=== PATIENT | female | born 1985 | race Caucasian/White ===

== ENCOUNTER 2017-08-11 19:19 | Inpatient (IN) | payer OTHER ==
[2017-08-11] MEDS: SOD CHLORIDE 0.9% 1,000 ML IV (22:21)
[2017-08-11] MEDS: ONDANSETRON 4 MG INJ IV (22:21)
[2017-08-11] MEDS: morphine 4 MG/ML VIAL IV (22:22)
[2017-08-11 22:30] LABS: ADD MAN DIFF? NO
[2017-08-11 22:32] LABS: BASOPHILS % 0.3 % (0.0-2.0); EOSINOPHILS # 0.1 10^3/ul (0.0-0.5); EOSINOPHILS % 0.9 % (0.0-7.0); HEMATOCRIT 31.9 % (37.0-47.0); HEMOGLOBIN 10.4 g/dl (12.0-16.0); LYMPHOCYTES # 1.8 10^3/ul (0.8-2.9); LYMPHOCYTES % 14.1 % (15.0-51.0); MEAN CORPUSCULAR HEMOGLOBIN 27.4 pg (29.0-33.0); MEAN CORPUSCULAR HGB CONC 32.6 g/dl (32.0-37.0); MEAN CORPUSCULAR VOLUME 84.2 fl (82.0-101.0); MEAN PLATELET VOLUME 9.4 fl (7.4-10.4); MONOCYTE # 1.1 10^3/ul (0.3-0.9); MONOCYTES % 8.3 % (0.0-11.0); NEUTROPHIL # 9.9 10^3/ul (1.6-7.5); NEUTROPHILS % 75.9 % (39.0-77.0); PLATELET COUNT 392 10^3/UL (140-415); RED BLOOD COUNT 3.79 10^6/ul (4.20-5.40); RED CELL DISTRIBUTION WIDTH 13.2 % (11.5-14.5)
[2017-08-11 22:36] LABS: ADD UMIC NO; UR ASCORBIC ACID NEGATIVE (NEGATIVE); UR BILIRUBIN (Dip) NEGATIVE (NEGATIVE); UR BLOOD (Dip) NEGATIVE (NEGATIVE); UR CLARITY CLEAR (CLEAR); UR COLOR YELLOW (YELLOW); UR GLUCOSE (Dip) NEGATIVE (NEGATIVE); UR KETONES (Dip) NEGATIVE (NEGATIVE); UR LEUKOCYTE ESTERASE (Dip) NEGATIVE Leu/ul (NEGATIVE); UR NITRITE (Dip) NEGATIVE (NEGATIVE); UR SPECIFIC GRAVITY (Dip) 1.014 (1.003-1.030); UR TOTAL PROTEIN (Dip) NEGATIVE (NEGATIVE); UR UROBILINOGEN (Dip) NEGATIVE (NEGATIVE)
[2017-08-11 22:49] LABS: ALANINE AMINOTRANSFERASE 25 IU/L (13-69); ALBUMIN 4.7 g/dl (3.3-4.9); ALBUMIN/GLOBULIN RATIO 1.56; ALKALINE PHOSPHATASE 94 IU/L (42-121); ANION GAP 17 (8-16); ASPARTATE AMINO TRANSFERASE 23 IU/L (15-46); BILIRUBIN,INDIRECT 0.2 mg/dl (0-1.1); BILIRUBIN,TOTAL 0.2 mg/dl (0.2-1.3); BLOOD UREA NITROGEN 11 mg/dl (7-20); CALCIUM 9.4 mg/dl (8.4-10.2); CARBON DIOXIDE 24 mmol/L (21-31); CHLORIDE 104 mmol/L (97-110); CREATININE 0.65 mg/dl (0.44-1.00); GLUCOSE 115 mg/dl (70-220); LIPASE 107 U/L (23-300); POTASSIUM 3.9 mmol/L (3.5-5.1); SODIUM 141 mmol/L (135-144); TOTAL PROTEIN 7.7 g/dl (6.1-8.1)
[2017-08-11] MEDS: HYDROmorphONE 1 MG/ML SYG IV (23:58)
[2017-08-12 00:57] LABS: INR 0.93; PROTIME 12.6 Sec (11.9-14.9)
[2017-08-12 00:58] LABS: PARTIAL THROMBOPLASTIN TIME 30.3 Sec (25.0-35.0)
[2017-08-12] MEDS: SODIUM CHLORIDE 0.9% 1L BAG IV* (01:15)
[2017-08-12 01:34] LABS: TROPONIN-I < 0.012 ng/ml (0.00-0.12)
[2017-08-12] MEDS: CEFTRIAXONE 1 GM/50 ML (PMX) 50 ML IVPB (02:26)
[2017-08-12] MEDS: KETOROLAC 30 MG INJ IV (02:26)
[2017-08-12] MEDS: AZITHROMYCIN 500MG/NS (PMX) 250 ML IVPB (02:55)
[2017-08-12] MEDS: morphine 2 MG INJ IV ×3 (03:57→19:30)
[2017-08-12] MEDS ORDERED: ALBUTEROL/IPRATROPIUM (NEB) 3 ML AMP HHN (04:00)
[2017-08-12] MEDS ORDERED: NACL 0.9% 3 ML SYG IV (04:00)
[2017-08-12 06:05] LABS: ADD MAN DIFF? NO
[2017-08-12] MEDS: LEVOFLOXACIN 500MG/D5W (PMX) 100 ML IVPB (06:19)
[2017-08-12 06:32] LABS: WHITE BLOOD COUNT 10.7 10^3/ul (4.8-10.8)
[2017-08-12 06:32] LABS: BASOPHILS % 0.3 % (0.0-2.0); EOSINOPHILS # 0.1 10^3/ul (0.0-0.5); EOSINOPHILS % 0.8 % (0.0-7.0); HEMOGLOBIN 7.7 g/dl (12.0-16.0); LYMPHOCYTES # 1.9 10^3/ul (0.8-2.9); LYMPHOCYTES % 17.7 % (15.0-51.0); MEAN CORPUSCULAR HEMOGLOBIN 27.1 pg (29.0-33.0); MEAN CORPUSCULAR HGB CONC 32.1 g/dl (32.0-37.0); MEAN CORPUSCULAR VOLUME 84.5 fl (82.0-101.0); MEAN PLATELET VOLUME 9.5 fl (7.4-10.4); MONOCYTE # 0.8 10^3/ul (0.3-0.9); NEUTROPHIL # 7.9 10^3/ul (1.6-7.5); NEUTROPHILS % 74.1 % (39.0-77.0); PLATELET COUNT 275 10^3/UL (140-415); RED BLOOD COUNT 2.84 10^6/ul (4.20-5.40); RED CELL DISTRIBUTION WIDTH 13.3 % (11.5-14.5)
[2017-08-12 06:45] LABS: LACTIC ACID 0.8 mmol/L (0.5-2.0)
[2017-08-12 06:52] LABS: ALANINE AMINOTRANSFERASE 24 IU/L (13-69); ALBUMIN 2.7 g/dl (3.3-4.9); ALBUMIN/GLOBULIN RATIO 1.03; ALKALINE PHOSPHATASE 57 IU/L (42-121); ANION GAP 9 (8-16); ASPARTATE AMINO TRANSFERASE 15 IU/L (15-46); BILIRUBIN,INDIRECT 0.2 mg/dl (0-1.1); BILIRUBIN,TOTAL 0.2 mg/dl (0.2-1.3); BLOOD UREA NITROGEN 6 mg/dl (7-20); CALCIUM 7.5 mg/dl (8.4-10.2); CARBON DIOXIDE 21 mmol/L (21-31); CHLORIDE 115 mmol/L (97-110); CREATININE 0.55 mg/dl (0.44-1.00); GLUCOSE 101 mg/dl (70-220); MAGNESIUM 1.5 mg/dl (1.7-2.5); PHOSPHORUS 3.1 mg/dl (2.5-4.9); POTASSIUM 3.7 mmol/L (3.5-5.1); SODIUM 141 mmol/L (135-144); TOTAL PROTEIN 5.3 g/dl (6.1-8.1)
[2017-08-12 07:25] LABS: HEMOGLOBIN A1C 5.5 % (0-5.9)
[2017-08-12] MEDS: ONDANSETRON 4 MG INJ IV ×2 (08:08→19:29)
[2017-08-12 08:11] LABS: LACTIC ACID 0.6 mmol/L (0.5-2.0)
[2017-08-12] MEDS: ENOXAPARIN 40 MG/0.4 ML SYG SC (09:46)
[2017-08-12] MEDS: MAGNESIUM SULFATE 2 GM/50 ML 50 ML IVPB (17:17)
[2017-08-12] MEDS: SOD CHLORIDE 0.9% 1,000 ML IV ×3 (17:18→23:42)
[2017-08-13] MEDS: SOD CHLORIDE 0.9% 1,000 ML IV ×2 (03:49→12:49)
[2017-08-13] MEDS: LEVOFLOXACIN 500MG/D5W (PMX) 100 ML IVPB (05:37)
[2017-08-13 06:52] LABS: ADD MAN DIFF? NO
[2017-08-13 06:55] LABS: BASOPHILS % 0.4 % (0.0-2.0); EOSINOPHILS # 0.2 10^3/ul (0.0-0.5); EOSINOPHILS % 3.1 % (0.0-7.0); HEMATOCRIT 26.1 % (37.0-47.0); HEMOGLOBIN 8.4 g/dl (12.0-16.0); LYMPHOCYTES # 1.8 10^3/ul (0.8-2.9); MEAN CORPUSCULAR HEMOGLOBIN 27.4 pg (29.0-33.0); MEAN CORPUSCULAR HGB CONC 32.2 g/dl (32.0-37.0); MEAN PLATELET VOLUME 9.5 fl (7.4-10.4); MONOCYTE # 0.4 10^3/ul (0.3-0.9); MONOCYTES % 8.6 % (0.0-11.0); NEUTROPHIL # 2.5 10^3/ul (1.6-7.5); NEUTROPHILS % 50.5 % (39.0-77.0); PLATELET COUNT 297 10^3/UL (140-415); RED BLOOD COUNT 3.07 10^6/ul (4.20-5.40); RED CELL DISTRIBUTION WIDTH 13.5 % (11.5-14.5)
[2017-08-13 06:55] LABS: WHITE BLOOD COUNT 4.9 10^3/ul (4.8-10.8)
[2017-08-13 07:17] LABS: ALANINE AMINOTRANSFERASE 35 IU/L (13-69); ALBUMIN 3.1 g/dl (3.3-4.9); ALBUMIN/GLOBULIN RATIO 1.19; ALKALINE PHOSPHATASE 63 IU/L (42-121); ANION GAP 16 (8-16); ASPARTATE AMINO TRANSFERASE 20 IU/L (15-46); BLOOD UREA NITROGEN 12 mg/dl (7-20); CALCIUM 8.7 mg/dl (8.4-10.2); CARBON DIOXIDE 23 mmol/L (21-31); CHLORIDE 111 mmol/L (97-110); CREATININE 0.58 mg/dl (0.44-1.00); GLUCOSE 102 mg/dl (70-220); POTASSIUM 4.4 mmol/L (3.5-5.1); SODIUM 146 mmol/L (135-144); TOTAL PROTEIN 5.7 g/dl (6.1-8.1)
[2017-08-13 07:20] LABS: HDL CHOLESTEROL 65 mg/dl (34-82); TRIGLYCERIDES 55 mg/dl (0-149)
[2017-08-13 07:35] LABS: CHOL/HDL RATIO 2.2 RATIO; LDL CHOLESTEROL,CALCULATED 67 mg/dl
[2017-08-13 07:43] LABS: CHOLESTEROL 143 mg/dl (100-200)
[2017-08-13 08:04] LABS: MAGNESIUM 1.8 mg/dl (1.7-2.5)
[2017-08-13 08:04] LABS: PHOSPHORUS 3.8 mg/dl (2.5-4.9)
[2017-08-13] MEDS: ENOXAPARIN 40 MG/0.4 ML SYG SC (09:00)
[2017-08-13 14:47] LABS: IRON 21 ug/dl (35-150)
[2017-08-13 14:56] LABS: % IRON SATURATION 5 % SAT (22-52); TOTAL IRON BINDING CAPACITY 406 ug/dl (241-421)
[2017-08-13 15:21] LABS: FERRITIN 19.1 ng/ml (6.2-137.0)
[2017-08-13] MEDS ORDERED: PROPOFOL 20 ML (15:32)
[2017-08-13] MEDS ORDERED: ONDANSETRON 4 MG INJ (15:32)
[2017-08-13] MEDS ORDERED: ROCURONIUM 50 MG INJ ×2 (15:32→16:38)
[2017-08-13] MEDS ORDERED: ROPIVACAINE 0.5 % 30 ML VIAL (15:32)
[2017-08-13] MEDS ORDERED: METOCLOPRAMIDE 10 MG INJ (15:34)
[2017-08-13] MEDS ORDERED: MIDAZOLAM 1 MG/ML 2 ML INJ ×2 (15:35→17:30)
[2017-08-13] MEDS ORDERED: CEFAZOLIN 1 GM INJ (16:04)
[2017-08-13] MEDS: BUPIVACAINE 0.25%/EPI (SDV) 30 ML INJ INJ (16:25)
[2017-08-13] MEDS ORDERED: HYDROmorphONE 2 MG/ML SYG (16:36)
[2017-08-13] MEDS ORDERED: HYDROmorphONE 1 MG/ML SYG IV (17:30)
[2017-08-13] MEDS ORDERED: KETOROLAC 30 MG INJ IV (17:30)
[2017-08-13] MEDS ORDERED: BISACODYL 10 MG SUPP PR (17:30)
[2017-08-13] MEDS ORDERED: DOCUSATE SODIUM 100 MG CAP PO (17:30)
[2017-08-13] MEDS ORDERED: HYDROCODONE/APAP (5/325) TAB PO (17:30)
[2017-08-13] MEDS ORDERED: HYDROmorphONE (0.2 MG/ML) 10ML SYG IV ×3 (17:30)
[2017-08-13] MEDS ORDERED: HYDROmorphONE 0.5 MG/0.5 ML SYG IV (17:30)
[2017-08-13] MEDS ORDERED: NA PHOSPHATE/BIPHOS 133 ML ENEMA PR (17:30)
[2017-08-13] MEDS ORDERED: DIPHENHYDRAMINE 50 MG INJ IV ×2 (17:30→22:30)
[2017-08-13] MEDS ORDERED: ALBUTEROL 0.5% (NEB) 2.5 MG/0.5 ML AMP (17:40)
[2017-08-13] MEDS: MIDAZOLAM 1 MG/ML 2 ML INJ IV (17:55)
[2017-08-13] MEDS: ALBUTEROL 0.083% (NEB) 2.5 MG/3 ML AMP HHN (18:01)
[2017-08-13] MEDS: MEPERIDINE 25 MG INJ IV (18:17)
[2017-08-13] MEDS: ONDANSETRON 4 MG INJ IV ×2 (18:17→22:39)
[2017-08-13] MEDS: HYDROmorphONE 0.5 MG/0.5 ML SYG IV ×2 (20:22→22:22)
[2017-08-13] MEDS ORDERED: DIPHENHYDRAMINE 25 MG CAP PO (22:30)
[2017-08-14] MEDS: ACETAMINOPHEN 325 MG TAB PO (04:00)
[2017-08-14 05:25] LABS: ADD MAN DIFF? NO
[2017-08-14 05:31] LABS: BASOPHILS % 0.2 % (0.0-2.0); EOSINOPHILS # 0.1 10^3/ul (0.0-0.5); EOSINOPHILS % 0.6 % (0.0-7.0); HEMATOCRIT 26.3 % (37.0-47.0); HEMOGLOBIN 8.8 g/dl (12.0-16.0); LYMPHOCYTES # 1.4 10^3/ul (0.8-2.9); LYMPHOCYTES % 16.3 % (15.0-51.0); MEAN CORPUSCULAR HGB CONC 33.5 g/dl (32.0-37.0); MEAN CORPUSCULAR VOLUME 83.8 fl (82.0-101.0); MEAN PLATELET VOLUME 9.3 fl (7.4-10.4); MONOCYTE # 0.6 10^3/ul (0.3-0.9); MONOCYTES % 7.3 % (0.0-11.0); NEUTROPHIL # 6.4 10^3/ul (1.6-7.5); NEUTROPHILS % 75.1 % (39.0-77.0); PLATELET COUNT 347 10^3/UL (140-415); RED BLOOD COUNT 3.14 10^6/ul (4.20-5.40); RED CELL DISTRIBUTION WIDTH 13.4 % (11.5-14.5)
[2017-08-14 05:31] LABS: WHITE BLOOD COUNT 8.6 10^3/ul (4.8-10.8)
[2017-08-14 05:59] LABS: INR 1.03; PARTIAL THROMBOPLASTIN TIME 23.8 Sec (25.0-35.0); PROTIME 13.6 Sec (11.9-14.9); PT RATIO 1.1
[2017-08-14 06:02] LABS: MAGNESIUM 1.6 mg/dl (1.7-2.5)
[2017-08-14 06:14] LABS: B-TYPE NATRIURETIC PEPTIDE 778 PG/ML (0-125)
[2017-08-14 06:43] LABS: ALANINE AMINOTRANSFERASE 39 IU/L (13-69); ALBUMIN 3.9 g/dl (3.3-4.9); ALBUMIN/GLOBULIN RATIO 1.25; ALKALINE PHOSPHATASE 66 IU/L (42-121); ANION GAP 16 (8-16); ASPARTATE AMINO TRANSFERASE 52 IU/L (15-46); BILIRUBIN,INDIRECT 0.1 mg/dl (0-1.1); BILIRUBIN,TOTAL 0.1 mg/dl (0.2-1.3); BLOOD UREA NITROGEN 6 mg/dl (7-20); CALCIUM 9.3 mg/dl (8.4-10.2); CARBON DIOXIDE 28 mmol/L (21-31); CHLORIDE 105 mmol/L (97-110); CREATININE 0.65 mg/dl (0.44-1.00); GLUCOSE 113 mg/dl (70-220); POTASSIUM 4.1 mmol/L (3.5-5.1); SODIUM 145 mmol/L (135-144)
[2017-08-14] MEDS ORDERED: BUPIVACAINE 0.25%/EPI (MDV) 50 ML VIAL INJ (07:00)
[2017-08-14] MEDS: HYDROCODONE/APAP (5/325) TAB PO ×2 (08:11→15:28)
[2017-08-14] MEDS: FAMOTIDINE 20 MG INJ IV (08:11)
[2017-08-14] MEDS: INFLUENZA VIRUS VACCINE 0.5 ML SYG IM* (08:20)
[2017-08-14] MEDS: ENOXAPARIN 40 MG/0.4 ML SYG SC (08:20)
[2017-08-14] MEDS: MAGNESIUM SULFATE 2 GM/50 ML 50 ML IVPB (13:00)
== END 2017-08-14 17:20 | disposition home or self-care (01) | DRG 854 ==
LOC: FTE 19:19 → PP2 08-13 18:55 → MS3 08-12 03:12
PROC: 0FT44ZZ Resection of Gallbladder, Percutaneous Endoscopic Approach (ICD-10-PCS; principal; 2017-08-13 15:00)
DX: A41.9 Sepsis, unspecified organism (principal); K80.00 Calculus of gallbladder with acute cholecystitis without obstruction; N39.0 Urinary tract infection, site not specified; D64.9 Anemia, unspecified; E66.9 Obesity, unspecified; Z68.30 Body mass index [BMI] 30.0-30.9, adult; Z97.5 Presence of (intrauterine) contraceptive device
CPT/HCPCS: 36415; 71045; 74176; 76705; 76856; 80053; 80061; 81003; 82728; 83036; 83540; 83605; 83690; 83735; 83880; 84100; 84484; 84703; 85025; 85610; 85730; 87040; 87086; 87400; 88304; 93005; 94664; 96361; 96365; 96366; 96368; 96372; 96375; 96376; 99285-25

== ENCOUNTER 2017-08-24 11:12 | Outpatient (CLI) | payer OTHER | END 2017-08-24 15:52 | disposition home or self-care (01) | LOC: HPC 11:12 | DX: Z09 Encounter for follow-up examination after completed treatment for conditions other than malignant neoplasm (principal); K80.10 Calculus of gallbladder with chronic cholecystitis without obstruction | CPT/HCPCS: Z7500 ==